=== PATIENT | male | born 1960 | race Caucasian/White ===

== ENCOUNTER 2017-07-25 20:19 | Emergency (ER) | payer BC ==
[2017-07-25] MEDS ORDERED: NS 0.9% 500 ML* 500 ML IV ONE (20:38)
[2017-07-25] MEDS ORDERED: Meclizine TAB* 12.5 MG PO ONE (20:38)
[2017-07-25 20:56] LABS: ABS Basophils 0 10^3/ul (0-0.2); ABS Eosinophils 0.1 10^3/ul (0-0.6); ABS Monocytes 0.4 10^3/ul (0-0.8); ABS Neutrophils 5.5 10^3/ul (1.5-7.7); ABS Nucleated RBC 0 10^3/ul; Eosinophil % 1.7 % (0-6); Hematocrit 41 % (42-52); Lymphocyte % 24.7 % (25-47); Mean Corpuscular HGB Conc 34 g/dl (31-36); Mean Corpuscular Hemoglobin 33 pg (27-31); Mean Corpuscular Volume 96 fL (80-94); Mean Platelet Volume 8.2 um3 (7.4-10.4); Nucleated Red Blood Cells % 0; Platelet Count 138 10^3/ul (150-450); Red Blood Count 4.27 10^6/ul (4.0-5.4); Red Cell Distribution Width 14 % (10.5-15); White Blood Count 8.2 10^3/ul (3.5-10.8)
[2017-07-25 21:04] LABS: INR 1.06 (0.77-1.02)
--- NOTE | 2017-07-25 21:17 | RAD ---
Indication: Vertigo. CT of the brain was performed without IV contrast. Ventricular structures are midline. No midline shift noted. The extra-axial spaces are unremarkable. There is no evidence of intracranial mass or hemorrhage. No other high or low density lesions are identified. Mastoid air cells and paranasal sinuses are otherwise unremarkable. IMPRESSION: No intracranial mass or hemorrhage is noted.
[2017-07-25 22:09] VITALS: BP 136/71
--- NOTE | 2017-07-27 03:01 | ED ---
Jakob Griffiths Jade, scribed for Mag Rodriguez MD on 07/25/17 at 2053 . Dizziness - HPI Summary HPI Summary: Pt is a 56 y/o male BIBA c/o dizziness. Pt states his head felt congested and his ears were plugged, similar to how they feel with seasonal allergies, then all of the sudden he felt dizzy. He states this felt similar to a previous low blood sugar episode. He states he gets vertigo when he tilts his head back and the room spins. Pt denies any N/V or CP. PMHx diabetes and aortic stenosis. PSHx CABG. Pt is on Metformin for his diabetes. - History Of Current Complaint Chief Complaint: EDDiabeticProb Stated Complaint: DIZZINESS Time Seen by Provider: 07/25/17 20:20 Hx Obtained From: Patient Onset/Duration: Suddenly Character: Room Spinning, Dizzy Aggravating Factor(s): Change In Head Position - Tilting head back causes vertigo Alleviating Factor(s): Nothing Associated Signs And Symptoms: Negative: Nausea, Vomiting, Chest Pain Related History: Similar Episode/Dx as - previous low blood sugar episode - Allergies/Home Medications Allergies/Adverse Reactions: Allergies Allergy/AdvReac Type Severity Reaction Status Date / Time No Known Allergies Allergy Verified 08/11/12 18:39 Home Medications: Home Medications Aspirin EC TAB* [Ecotrin EC Low Dose 81 MG*] 81 mg PO DAILY 07/25/17 [History Confirmed 07/25/17] Metoprolol Succinate XL TAB* [Toprol XL TAB*] 12.5 mg PO DAILY 07/25/17 [ History Confirmed 07/25/17] Rosuvastatin (NF) [Crestor] 20 mg PO DAILY 07/25/17 [History Confirmed 07/25/17] metFORMIN* [Glucophage 500 MG TAB *] 500 mg PO DAILY 07/25/17 [History Confirmed 07/25/17] PMH/Surg Hx/FS Hx/Imm Hx Endocrine/Hematology History: Reports: Hx Diabetes - type 2 Denies: Hx Thyroid Disease Cardiovascular History: Reports: Hx Hypertension Denies: Hx Congestive Heart Failure, Hx Deep Vein Thrombosis, Hx Myocardial Infarction, Hx Pacemaker/ICD Respiratory History: Denies: Hx Asthma, Hx Chronic Obstructive Pulmonary Disease (COPD), Hx Lung Cancer, Hx Pneumonia, Hx Pulmonary Embolism GI History: Denies: Hx Gall Bladder Disease, Hx Gastrointestinal Bleed, Hx Ulcer, Hx Urosepsis History: Denies: Hx Kidney Stones, Hx Renal Disease Neurological History: Denies: Hx Dementia, Hx Migraine, Hx Seizures, Hx Transient Ischemic Attacks (TIA) Psychiatric History: Denies: Hx Anxiety, Hx Depression, Hx Schizophrenia, Hx Bipolar Disorder - Surgical History Surgery Procedure, Year, and Place: bypass Infectious Disease History: No Infectious Disease History: Denies: Hx Hepatitis, Hx Human Immunodeficiency Virus (HIV), Traveled Outside the [place] in Last 30 Days - Family History Known Family History: Negative: Seizure Disorder, Blood Disorder - Social History Alcohol Use: None Substance Use Type: Reports: None Smoking Status (MU): Never Smoked Tobacco Review of Systems Positive: Other - Congestion and plugged ears Negative: Chest Pain Negative: Vomiting, Nausea Neurological: Other - Dizziness All Other Systems Reviewed And Are Negative: Yes Physical Exam - Summary Physical Exam Summary: ~VITAL SIGNS: Reviewed. GENERAL: ~Patient is a well-developed and nourished male who is lying comfortable in the stretcher. Patient is not in any acute respiratory distress. HEAD AND FACE: No signs of trauma. No ecchymosis, hematomas or skull depressions. No sinus tenderness. EYES: PERRLA, EOMI x 2, No injected conjunctiva, no nystagmus. EARS: Hearing grossly intact. Ear canals and tympanic membranes are within normal limits. MOUTH: Oropharynx within normal limits. NECK: Supple, trachea is midline, no adenopathy, no JVD, no carotid bruit, no c- spine tenderness, neck with full ROM. CHEST: Symmetric, no tenderness at palpation LUNGS: Clear to auscultation bilaterally. No wheezing or crackles. CVS: Regular rate and rhythm, S1 and S2 present, no gallops appreciated, 2/6 systolic murmur over left sternal border.. ABDOMEN: Soft, non-tender. No signs of distention. No rebound no guarding, and no masses palpated. Bowel sounds are normal. EXTREMITIES: FROM in all major joints, no edema, no cyanosis or clubbing. NEURO: Alert and oriented x 3. No acute neurological deficits. Speech is normal and follows commands. Neurological exam intact. Vertigo induced by head movement. SKIN: Dry and warm GCS: 15 Triage Information Reviewed: Yes Vital Signs On Initial Exam: Initial Vitals Temp Pulse Resp BP Pulse Ox 97.8 F 64 16 155/84 99 07/25/17 20:32 07/25/17 20:32 07/25/17 20:32 07/25/17 20:32 07/25/17 20:32 Vital Signs Reviewed: Yes Diagnostics - Vital Signs Vital Signs Temp Pulse Resp BP Pulse Ox 07/25/17 20:39 65 15 99 07/25/17 20:37 64 17 141/76 98 07/25/17 20:32 97.8 F 64 16 155/84 99 - Laboratory Result Diagrams: 07/25/17 20:45 07/25/17 20:45 Lab Statement: Any lab studies that have been ordered have been reviewed, and results considered in the medical decision making process. - CT Brain CT CT Interpretation: No Acute Changes - No intracranial mass or hemorrhage is noted. ED physician reviewed radiology report. CT Interpretation Completed By: Radiologist - EKG 20:24 Cardiac Rate: NL - 60 bpm EKG Rhythm: Sinus Rhythm EKG Interpretation: Normal axis. Normal interval. No ischemic changes. Dizzy Course/Dx - Course Course Of Treatment: Pt is a 56 y/o male BIBA c/o dizziness. Pt states his head felt congested and his ears were plugged, then suddenly felt dizzy, which felt similar to a previous low blood sugar episode. He gets vertigo when he tilts his head back and the room spins. Pt denies any N/V or CP. PMHx diabetes and aortic stenosis. PSHx CABG. Pt is on Metformin for his diabetes. A brain CT revealed no intracranial mass or hemorrhage. An EKG revealed normal rate at 60 bpm, sinus rhythm, normal axis, normal interval, and no ischemic changes. In the ED course, pt was given Antivert and fluids. Patient will be discharged with a final Dx of benign positional vertigo. Pt is agreeable with this plan. - Diagnoses Provider Diagnoses: Benign positional vertigo Discharge - Sign-Out/Discharge Documenting (check all that apply): Discharge/Admit/Transfer - Discharge - Discharge Plan Condition: Stable Disposition: HOME Prescriptions: Meclizine TAB* [Antivert 12.5 TAB*] 25 mg PO TID PRN #20 tab PRN Reason: Vertigo Patient Education Materials: Benign Paroxysmal Positional Vertigo (ED) Referrals: Segun Valdivia MD [Primary Care Provider] - 3 Days Additional Instructions: RETURN TO EMERGENCY DEPARTMENT FOR ANY NEW OR WORSENING SYMPTOMS The documentation as recorded by the Jakob snyder Jade accurately reflects the service I personally performed and the decisions made by me, Mag Rodriguez MD.
== END 2017-07-25 22:19 | disposition home or self-care (01) ==
LOC: ED 20:19
DX: H81.10 Benign paroxysmal vertigo, unspecified ear (principal); H83.8X9 Other specified diseases of inner ear, unspecified ear; E11.9 Type 2 diabetes mellitus without complications
CPT/HCPCS: 36415; 70450; 80053; 83735; 84484; 85025; 85610; 85730; 86140; 93005; 99283; A9270-GY

== ENCOUNTER 2018-10-27 14:25 | Emergency (ER) | payer BC ==
--- NOTE | 2018-10-27 16:40 | ED ---
Throat Pain/Nasal Congestion - HPI Summary HPI Summary: This patient is a 58 year old M presenting to [facility] with a chief complaint of visual disturbance at 1300 today. Pt states he turned his head quickly when he felt one eye crossing. Symptoms are now resolved. Pt has hx of vertigo, bypass surgery, pinched nerves, bulging disc. Patient states this felt similar to his prior episodes of vertigo, but denies vertiginous symptoms at this time. No weakness, numbness, or gait abnormalities. - History of Current Complaint Chief Complaint: EDEyeProblem Time Seen by Provider: 10/27/18 16:06 Hx Obtained From: Patient Onset/Duration: Sudden Onset, Lasting Hours - since 1300 today, Resolved Severity: Mild Related History: Seasonal Allergies - Allergies/Home Medications Allergies/Adverse Reactions: Allergies Allergy/AdvReac Type Severity Reaction Status Date / Time No Known Allergies Allergy Verified 08/11/12 18:39 PMH/Surg Hx/FS Hx/Imm Hx Previously Healthy: No Endocrine/Hematology History: Reports: Hx Diabetes - type 2 Denies: Hx Thyroid Disease Cardiovascular History: Reports: Hx Hypertension Denies: Hx Congestive Heart Failure, Hx Deep Vein Thrombosis, Hx Myocardial Infarction, Hx Pacemaker/ICD Respiratory History: Denies: Hx Asthma, Hx Chronic Obstructive Pulmonary Disease (COPD), Hx Lung Cancer, Hx Pneumonia, Hx Pulmonary Embolism GI History: Denies: Hx Gall Bladder Disease, Hx Gastrointestinal Bleed, Hx Ulcer, Hx Urosepsis History: Denies: Hx Kidney Stones, Hx Renal Disease Sensory History: Reports: Hx Contacts or Glasses Opthamlomology History: Reports: Hx Contacts or Glasses Neurological History: Denies: Hx Dementia, Hx Migraine, Hx Seizures, Hx Transient Ischemic Attacks (TIA) Psychiatric History: Denies: Hx Anxiety, Hx Depression, Hx Schizophrenia, Hx Bipolar Disorder - Surgical History Surgical History: Yes Surgery Procedure, Year, and Place: bypass Infectious Disease History: No Infectious Disease History: Denies: Hx Hepatitis, Hx Human Immunodeficiency Virus (HIV), Traveled Outside the [place] in Last 30 Days - Family History Known Family History: Negative: Seizure Disorder, Blood Disorder - Social History Alcohol Use: None Substance Use Type: Reports: None Smoking Status (MU): Never Smoked Tobacco Review of Systems Constitutional: Other - positive - severe allergies Eyes: Other - positive - crossing eyes Negative: Syncope All Other Systems Reviewed And Are Negative: Yes Physical Exam - Summary Physical Exam Summary: Constitutional: Well-developed, Well-nourished, Alert. (-) Distressed Skin: Warm, Dry HENT: Normocephalic; Atraumatic Eyes: Conjunctiva normal Neck: Musculoskeletal ROM normal neck. (-) JVD, (-) Stridor, (-) Nuchal rigidity Cardio: Rhythm regular, rate normal, Heart sounds normal; Intact distal pulses; Radial pulses are 2+ and symmetric. Systolic ejection murmur Pulmonary/Chest wall: Effort normal. (-) Respiratory distress, (-) Wheezes, (-) Rales Abd: non distended Musculoskeletal: (-) Edema Neuro: Alert, Oriented x3, CN 2-12 grossly intact, strength 5 out of 5 in bilateral upper and lower extremities, sensation intact light touch. No nystagmus, no dysmetria. Ambulaltory w steady gait Psych: Mood and affect Normal Triage Information Reviewed: Yes Vital Signs On Initial Exam: Initial Vitals Temp Pulse Resp BP Pulse Ox 99.1 F 67 18 148/71 97 10/27/18 14:32 10/27/18 14:32 10/27/18 14:32 10/27/18 14:32 10/27/18 14:32 Vital Signs Reviewed: Yes Diagnostics - Vital Signs Vital Signs Temp Pulse Resp BP Pulse Ox 10/27/18 14:32 99.1 F 67 18 148/71 97 - Laboratory Lab Statement: Any lab studies that have been ordered have been reviewed, and results considered in the medical decision making process. EENT Course/Dx - Course Course Of Treatment: 58-year-old male with a history of vertigo, CAD status post CABG who presents with episode of visual disturbance. - Neuro exam unremarkable here. Vision return to normal, unclear why transient episode occurred but no signs of TIA or stroke at this time. - Instructed to for worsening or persistent symptoms, and follow-up with his primary care doctor. - Diagnoses Provider Diagnoses: Visual disturbance Discharge ED - Sign-Out/Discharge Documenting (check all that apply): Patient Departure - discharge Patient Received Moderate/Deep Sedation with Procedure: No - Discharge Plan Condition: Stable Disposition: HOME Patient Education Materials: Blurred Vision (ED) Referrals: Segun Valdivia MD [Primary Care Provider] - 2 Days Additional Instructions: You were seen in the emergency department for an episode of blurred vision. Your neurologic exam is normal. Please return to emergency department for continued symptoms, dizziness, or if you're concerned. If any studies were not completed at the time of discharge you will be called with the relevant results. Please follow up with your primary care doctor in next 2-3 days and return to emergency department for worsening or concerning symptoms. It was a pleasure taking care of you today. - Billing Disposition and Condition Condition: STABLE Disposition: Home - Attestation Statements Document Initiated by Mel: Yes Documenting Scribe: Brijesh Parekh Provider For Whom Mel is Documenting (Include Credential): Dr. Allan Thornton MD Scribe Attestation: I, Brijesh Parekh, scribed for Dr. Allan Thornton MD on 10/27/18 at 1915. Scribe Documentation Reviewed: Yes Provider Attestation: The documentation as recorded by the Brijesh snyder accurately reflects the service I personally performed and the decisions made by me, Dr. Allan Thornton MD Status of Scribe Document: Viewed
[2018-10-27 17:16] VITALS: BP 138/71
== END 2018-10-27 17:12 | disposition home or self-care (01) ==
LOC: ED 14:25
DX: H53.9 Unspecified visual disturbance (principal); E11.9 Type 2 diabetes mellitus without complications; I10 Essential (primary) hypertension; Z95.1 Presence of aortocoronary bypass graft
CPT/HCPCS: 99282